=== PATIENT | female | born 1950 | race Caucasian/White ===

== ENCOUNTER 2021-11-15 07:09 | Day surgery (SDC) | payer OTHER, BC, SELFPAY ==
[~2021-11-15] VITALS: Ht 156.2 cm; Wt 86.2 kg
[2021-11-15] MEDS ORDERED: MIDAZOLAM HCL 5 MG/5 ML VIAL ONE (08:27)
[2021-11-15] MEDS ORDERED: MEPERIDINE 100 MG INJ. 100 MG/ML VIAL ONE (08:27)
[2021-11-15] MEDS ORDERED: ARTICAINE HCL/EPINEPHRINE 4%/1:200,000 BIT 1.7 ML CARTRIDGE IJ ONE (09:18)
[2021-11-15] MEDS ORDERED: NS 1000 ML IV.SOLN IV ONE (09:18)
[2021-11-15] MEDS ORDERED: NS IRRIG SOLN 1000 ML IR ONE (09:18)
[2021-11-15 13:04] VITALS: BP_SYST 132
== END 2021-11-15 10:30 | disposition home or self-care (01) ==
LOC: UNDOADMIN 07:09 → SDS 07:09 → SMU 07:09 → EDSTATUS 09:00 → UNDODISIN 10:30 → SDS 10:30
PROVIDERS: ATTEND Dentist General Practice
DX: M27.2 Inflammatory conditions of jaws (principal); M89.8X0 Other specified disorders of bone, multiple sites; M26.603 Bilateral temporomandibular joint disorder, unspecified; G47.33 Obstructive sleep apnea (adult) (pediatric); M06.9 Rheumatoid arthritis, unspecified; I24.9 Acute ischemic heart disease, unspecified; J01.01 Acute recurrent maxillary sinusitis; K05.223 Aggressive periodontitis, generalized, severe; K08.429 Partial loss of teeth due to periodontal diseases, unspecified class; K12.2 Cellulitis and abscess of mouth; Z79.899 Other long term (current) drug therapy; Z88.0 Allergy status to penicillin; Z88.2 Allergy status to sulfonamides; Z20.822 Contact with and (suspected) exposure to COVID-19
CPT/HCPCS: 21026; 21215; 21248; 36415; 41826; 70140; 82962; 87426; C1713 ×2; J7030; J2175; J2250